=== PATIENT | female | born 1950 | race Caucasian/White ===

== ENCOUNTER 2020-10-03 13:21 | Emergency (ER) | payer MEDICARE ==
[~2020-10-03] VITALS: Ht 152.4 cm; Wt 115.3 kg
[2020-10-03 13:29] VITALS: BP 159/66
[2020-10-03] MEDS ORDERED: ibuprofen 200mg tablet PO ONE (14:40)
[2020-10-03] MEDS ORDERED: HYDR-3965 PO (15:27)
== END 2020-10-03 15:47 | disposition home or self-care (01) ==
LOC: ER 13:21
DX: S42.91XA Fracture of right shoulder girdle, part unspecified, initial encounter for closed fracture (principal); I50.9 Heart failure, unspecified; I11.0 Hypertensive heart disease with heart failure; E11.9 Type 2 diabetes mellitus without complications; Z87.440 Personal history of urinary (tract) infections; Z79.899 Other long term (current) drug therapy; W18.09XA Striking against other object with subsequent fall, initial encounter; Z91.81 History of falling; Y93.89 Activity, other specified; Y92.89 Other specified places as the place of occurrence of the external cause; Y99.8 Other external cause status
CPT/HCPCS: 73030; 99284

== ENCOUNTER 2025-02-18 17:07 | Emergency (ER) | payer MEDICARE, MEDICAID ==
[~2025-02-18] VITALS: Ht 152.4 cm; Wt 91.2 kg
[~2025-02-18 17:07] MED LIST: ATEN-236 PO; DESV50TA PO; GLIM2TAB6 PO; HYDR12.55 PO; LISI40TA20 PO; METF-436 PO
[2025-02-18 17:47] VITALS: BP 155/77; PULSE 89; O2SAT 97
--- NOTE | 2025-02-18 17:51 | Physician Documentation ---
History of Present Illness ~ Stated Complaint: HIP PAIN Time Seen by MD: 20:15 Primary Medical Doctor: Porter Hall [facility] Source: patient Mode of Arrival: POV, EMS Exam Limitations: no limitations HPI [age] year old female brought in by EMS for acute on chronic right hip pain patient takes medications for chronic pain but has been noncompliant with her medications and did not take her medications today. Patient takes gabapentin but did not take her medication today Medication Reconciliation Allergies: Coded Allergies: No Known Allergies (Unverified , 08/01/13) Scheduled Atenolol (Atenolol), 1 TAB PO BID, (Reported) Desvenlafaxine Succinate (Pristiq ER), 1 TAB PO DAILY, (Reported) Glimepiride (Glimepiride), 1 TAB PO DAILY, (Reported) Hydrochlorothiazide (Hydrochlorothiazide), 1 TAB PO DAILY, (Reported) Lisinopril* (Lisinopril*), 1 TAB PO DAILY, (Reported) Metformin Hcl (Metformin Hcl), 2 TAB PO Q12H, (Reported) Past Medical History Past Medical History: Congestive Heart Failure, Hypertension, UTI, Diabetes Past Surgical History: orthopedic surgeries, tonsillectomy Alcohol Use: None Drug Use: none Lives with: Alone Lives In: Home Review of Systems All Other Systems at this time: Reviewed and Negative Musculoskeletal: Reports: see HPI Physical Exam General Appearance General: Alert, no apparent distress. HEENT: moist mucous membranes. Neck: Full range of motion. Respiratory: No respiratory distress speaking in full sentences Chest: No accessory muscle use. Cardiovascular: Appears well perfused Neurologic: Oriented x4. Extremities: Patient needed moderate assistance to stay and using the right lower extremity on triage standing scale Psychiatric: Normal mood and affect. Skin: Normal color, warm and dry. No edema, no ecchymosis. Progress Results/Orders Results/Orders Orders - BARBARA MAJOR NP Gait Test (02/18/25 ) Completed Orders - BARBARA MAJOR PROFESSOR OF CHEMISTRY Gabapentin Capsule (Neurontin Capsule) (02/19/25 00:00) Hydrocodone/Apap 5/325mg Tab ([place] 5/32 (02/18/25 18:00) Gabapentin Capsule (Neurontin Capsule) (02/18/25 21:18) Medications Received in ER Medications (Trade) Dose Ordered Sig/Kristel Route PRN Reason Start Time Stop Time Status Last Admin Dose Admin ([place] 5/325mg tablet) 1 tab ONCE ONCE PO 02/18/25 18:00 02/18/25 18:01 DC 02/18/25 21:16 1 TAB (Neurontin capsule) 400 mg ONCE STAT PO 02/18/25 21:18 02/18/25 21:21 DC 02/18/25 21:27 400 MG Vital Signs 02/18/25 02/18/25 02/18/25 17:47 21:16 21:20 Temp 97.9 97.9 Pulse 89 Resp 18 18 B/P (MAP) 155/77 Pulse Ox 97 O2 Flow Rate 0 Medical Decision Making Additional information obtaine: N/A Findings Old brought in by EMS for right hip pain which she has acute pain she has had for over 4 years. Forgot to take her medications today. Patient takes gabapen tin. Provided gabapentin and [place] to help with pain relief prior to discharge Differential Dx:Considerations: Include: Contusion, Strain, Other Departure Time of Disposition: 20:43 Disposition: HOME / SELF CARE / HOMELESS Impression: Primary Impression: Osteoarthritis Additional Impression: Hip pain Condition: Stable Discharge Instructions: Arthritis, Nonspecific Additional Instructions: Medications as prescribed and follow up with primary care. Potentially a pill organizer can help with remembering medications. Referrals: NO PRIMARY CARE PROVIDER (PCP) Education Educated: Patient Educated regarding: diagnosis, treatment, need for follow up Signature Scribe Signature: No scribe Attestation: The note accurately reflects work and decisions made by me.Barbara Major - ALBARO 02/18/25 20:44 BARBARA MAJOR NP Feb 18, 2025 17:51
[2025-02-18 21:16] VITALS: RESP 18
[2025-02-18] MEDS: HYDROcodone/acetaminophen 5mg/325mg tablet PO ONE (21:16)
[2025-02-18 21:20] VITALS: TEMP 97.9
== END 2025-02-18 21:32 | disposition home or self-care (01) ==
LOC: ER 17:07
DX: M25.551 Pain in right hip (principal); M19.90 Unspecified osteoarthritis, unspecified site; I11.0 Hypertensive heart disease with heart failure; I50.9 Heart failure, unspecified; G89.29 Other chronic pain; E11.9 Type 2 diabetes mellitus without complications; Z87.440 Personal history of urinary (tract) infections; Z90.89 Acquired absence of other organs; Z79.899 Other long term (current) drug therapy; Z60.2 Problems related to living alone
CPT/HCPCS: 99283

== ENCOUNTER 2025-04-09 11:43 | Inpatient (IN) | payer MEDICARE, MEDICAID ==
[~2025-04-09] VITALS: Ht 152.4 cm; Wt 100.0 kg
--- NOTE | 2025-04-09 11:56 | ELECTROCARDIOGRAPH REPORT ---
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 RUBY Welsh Measurements Intervals [place] Rate: 96 P: 52 MD: 154 QRS: 47 QRSD: 92 T: 74 QT: 382 QTc: 483 Interpretive Statements Sinus rhythm Ventricular bigeminy Minimal ST elevation, inferior leads Electronically Signed On 04-10-2025 19:21:[address] RUBY Welsh Please click the below link to view image of tracing.
[2025-04-09 12:27] LABS: MEAN PLATELET VOLUME 10.0 FL (7.4-10.4); RED CELL DISTRIBUTION WIDTH 13.5 % (11.5-14.5)
--- NOTE | 2025-04-09 12:46 | RADIOLOGY REPORT ---
CHEST RADIOGRAPH Indication: CP Technique: Single frontal view of the chest was obtained COMPARISON: None FINDINGS: Lines and Tubes: None Lungs: Clear Pleura: No effusion. No pneumothorax. Cardiomediastinal contours: Unremarkable Bones: Unremarkable IMPRESSION: No acute disease.
[2025-04-09 12:55] LABS: CREATININE 1.60 MG/DL (0.40-0.90); PRO BRAIN NATRIURETIC PEPTIDE 782 PG/ML (0-125); TOTAL CARBON DIOXIDE 25.9 MMOL/L (24-32); eCRCL 22 ML/MIN; eGFR 32 ML/MIN
[2025-04-09] MEDS: insulin regular, human 10 units/0.1 ml syringe IV ONE (13:41)
--- NOTE | 2025-04-09 14:22 | Physician Documentation ---
History of Present Illness General Chief Complaint: Bradycardia Stated Complaint: HYPERGLYCEMIA Time Seen by MD: 13:30 OK to notify your PCP?: Yes Primary Medical Doctor: [facility] Source: patient Mode of Arrival: EMS History of Present Illness Initial Comments A 74 years old female with PMH of uncontrolled T2DM, HTN, Heart failure of unknown ejection fraction, acute on chronic right hip pain, UTIs who was brought by EMS and sent by her home nurse found to have asymptomatic bradycardia and high RBS at 424. Pt dose not recall much information including reason of being here, why she was prescribed with Atenolol by her PCP etc which she attributed for the uncontrolled fluctuated blood sugar levels although pt was a well orientated and not confused. Pt denied for any symptoms at the time when she got bradycardia detected by her home nurse by denying dizziness, lightheadness, chest pain, pressure, discomfort, new visual changes, N&V, and passing out episode etc. She denied for hx of liver disease with hyperbilirubinaemia, step ladder pattern high grade fevers etc. She denied for any hormonal disorders and not currently on the HRT. She was never diagnosed with the CAD and [place] before but she noticed that her blood sugar was not controlled well alone with the insulin injection without taking any OHA. She is taking Atenolol 25 mg BID prescribed by her PCP for some reason which she dose not recall but she defensed that she missed her morning dose of Atenolol this morning. In ER, she was found to have high blood sugar at 424, and recheck RBS showed with 466 with no apparent symptoms except for the intense thirsty feeling while denying frequent polyuria, dysuria, urgenc y etc. She denied for any HF exacerbation symptoms and is not current on the Diuretics what she used to be on. Pt denied using any steroid medications. Medication Reconciliation Allergies: Coded Allergies: No Known Allergies (Unverified , 04/09/25) Scheduled Atenolol (Atenolol), 1 TAB PO BID, (Reported) Desvenlafaxine Succinate (Pristiq ER), 1 TAB PO DAILY, (Reported) Glimepiride (Glimepiride), 1 TAB PO DAILY, (Reported) Hydrochlorothiazide (Hydrochlorothiazide), 1 TAB PO DAILY, (Reported) Lisinopril* (Lisinopril*), 1 TAB PO DAILY, (Reported) Metformin Hcl (Metformin Hcl), 2 TAB PO Q12H, (Reported) Past Medical History Past Medical History: Congestive Heart Failure, Hypertension, GERD, UTI, Diabetes Past Surgical History: orthopedic surgeries, tonsillectomy Alcohol Use: None Drug Use: none Lives with: Alone Lives In: Home Review of Systems All Other Systems at this time: Reviewed and Negative Physical Exam Physical Exam Vital Signs: Temperature: 98.2, Source: Oral, Heart Rate: 90, Respiratory Rate: 18, BP: 111/46, Pulse Oximetry: 97, Weight: 100.000 Oxygen Flow Rate: 0 Physical Exam General: Well alert, well oriented, not confused, not agitated, not in acute distress, well cooperated during the physical. HEENT: Conjunctive are pink, sclerae clear, no icterus, pupil is equal in both sides, reactive to light, no ear discharge, no pharyngeal erythema or an edema, mouth and lips are dry. Neck: Supple, no JVD, no lymphadenopathy and thyromegaly. Lungs:Equal air entry on both lungs, no additional sounds Heart: S1-S2 regular sinus rhythm and, regular rate, no gallops, no rubs, no murmurs Abdomen: No visible peristalsis, Bowel sounds present on auscultation, soft, nontender, no guarding, no rigidity Extremities: No obvious deformities, no pitting edema bilaterally, capillary refill intact, able to wiggle toes both sides, peripheral pulsations are intact on both sides LIABILITY CLAIMS REPRESENTATIVE: No focal neurological deficits, no motor and sensory weakness in all 4 extremities, could move all 4 extremities Musculoskeletal: No joint swelling, deformities, inflammations, and no scoliosis and back tenderness Skin: No active skin lesions and rashes Progress Results/Orders Results/Orders Orders - LUKE,TIN, RES Hgb A1c (04/09/25 14:01) TSH (04/09/25 14:01) Lipid Panel (04/09/25 14:01) Liver Panel (04/09/25 14:04) Completed Orders - LUKE,TIN, RES Insulin Regular, Human (Humulin R 10 Uni (04/09/25 13:35) Medications Received in ER Medications (Trade) Dose Ordered Sig/Kristel Route PRN Reason Start Time Stop Time Status Last Admin Dose Admin (HumuLIN R 10 units per 0.1 ML syringe) 5 units ONCE ONCE IV 04/09/25 13:35 04/09/25 13:37 DC 04/09/25 13:41 5 UNITS Vital Signs 04/09/25 04/09/25 04/09/25 04/09/25 11:51 12:19 12:19 12:27 Temp 98.2 Pulse 47 90 Resp 14 16 18 B/P (MAP) 110/52 111/46 (67) Pulse Ox 94 97 97 O2 Delivery Room Air* O2 Flow Rate 0 0 0 FiO2 21 Laboratory Tests Test 04/09/25 11:51 04/09/25 12:11 04/09/25 13:43 Glucometer 424 *H White Blood Count 9.7 Red Blood Count 4.86 Hemoglobin 12.9 Hematocrit 39.9 Mean Corpuscular Volume 82.1 Mean Corpuscular Hemoglobin 26.6 L Mean Corpuscular Hemoglobin Concent 32.4 L Red Cell Distribution Width 13.5 Platelet Count 191 Mean Platelet Volume 10.0 Neutrophils (%) (Auto) 75.8 H Lymphocytes (%) (Auto) 17.2 L Monocytes (%) (Auto) 4.8 Eosinophils (%) (Auto) 1.3 Basophils (%) (Auto) 0.9 Neutrophils # (Auto) 7.4 Lymphocytes # (Auto) 1.7 Monocytes # (Auto) 0.5 Eosinophils # (Auto) 0.1 Basophils # (Auto) 0.1 CBC Comment Sodium Level 134 L Potassium Level 4.4 Chloride Level 101 Carbon Dioxide Level 25.9 Anion Gap 7 L Blood Urea Nitrogen 23 H Creatinine 1.60 H Estimated GFR/1.73 m2 32 BUN/Creatinine Ratio 14.4 Glucose Level 466 *H Calcium Level 9.0 Troponin I High Sensitivity 40 35 Pro-B-Type Natriuretic Peptide 782 H Albumin 2.9 L Chemistry Comments Troponin I High Sens Percent Delta 12 Troponin I Hi Sens Absolute Change -5 EKG/XRAY/CT/US/VASC/MRI Chest X-Ray : Interpreted By: radiologist Views: 1 VIEW Additional Comments FINDINGS: Lines and Tubes: None Lungs: Clear Pleura: No effusion. No pneumothorax. Cardiomediastinal contours: Unremarkable Bones: Unremarkable IMPRESSION: No acute disease. Medical Decision Making Additional information obtaine: old records Findings A 74 years old female with PMH of uncontrolled T2DM, HTN, Heart failure of unknown ejection fraction, chronic right hip pain, UTIs who was brought by EMS and sent by her home nurse found to have asymptomatic bradycardia and high RBS at 424. # Asymptomatic Bradycardia -Given hx of pt has been taking Atenolol regularly with no symptoms would be the possible etiology of her asymptomatic bradycardia for which the Atenolol was stopped from her med list. At that point, there is hard to believe that her providing facts about symptoms free when she is not a quite good historian and some memory issues which she attributed for the fluctuating blood sugar levels. Additionally, the nurse reported that pt HR dropped to 30s while she was asleep and it jumped up to 60s when she was aroused. She was ordered with the transcutaneous pacer pads although the vitals were stable and without reporting for any symptoms at that moment. -Her EKG only showed sinus bradycardia with some Bigmeny with no ST T abnormal changes with normal Trops with 40-35 -Ordered TSH and excluded out possible other etiologies of bradycardia from hyperbilirubinaemia (Pending liver panel), and Enteric fever etc. -She will be beneficial to be admitted to continue monitoring her Telemetry and possible Cardiology consultation for the further management. -Pending UA and C&S -Electrolytes were WNL except for the mild hyponatremia with no symptoms # Uncontrolled T2DM # Hypertension # Heart Failure with unknown EF, not in acute exacerbation -Poorly controlled alone with insulin at home -pending HbA1C and Lipid panel, pending ASCVD risk calculation -Was given one time dose of IV Insulin 5 mg and needs to initiate the hyper/hypoglycemic protocols during hospitalization to range between 140-180s -Carbs controlled diet and pt education will be necessary. -High blood pressure should be controlled with meds other than rene blocking agents and Atenolol was held. -Continue BP monitoring were suggested and replace Atenolol with some possible ACEI/ARB in the setting of HF with unknown EF, but continuous monitoring RFT with Cr 1.6 should be demanding. -Non specific elevation of proBNP in the background hx of CHF but not in acute exacerbation. Normal CXR finding. 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 -Pending UA and protein detection in urine # Chronic right hip pain -The Tylenol high dose seems to be helpful for her hip pain control -avoid using the nephrotoxic NSAIDs and some opiate pain control, suggested to use hydromorphone etc Differential Diagnosis Symptomatic Bradycardia Hyperglycemia Departure Time of Disposition: 14:33 Disposition: 09 ADMITTED INPATIENT Admitted to Inpatient Unit: yes, to hospitalist Admission Level of Care: PCU with Tele Impression: Primary Impression: Bradycardia Additional Impression: Hyperglycemia Condition: Fair Referrals: NO PRIMARY CARE PROVIDER (PCP) Education Educated: Patient Educated regarding: diagnosis, treatment, prognosis, need for follow up Signature Scribe Signature: No Scribe Attestation: Resident attestation: Patient was seen, examined and discussed with ER attending MD, Dr. Deepthi MD Internal Medicine Resident, PGY3 [facility] BUTLER, RES Apr 09, 2025 14:22
[2025-04-09] MEDS ORDERED: potassium Cl 40MEQ/1/2NS 520ml 520 ML IV PRN (14:35)
[2025-04-09] MEDS ORDERED: magnesium sulf-water 4G/100mL 100 ML IV PRN (14:35)
[2025-04-09] MEDS ORDERED: magnesium Cl slow-release 64mg tablet PO PRN (14:35)
[2025-04-09] MEDS ORDERED: bisacodyl 10mg suppository rectal RC PRN (14:35)
[2025-04-09] MEDS ORDERED: HYDROcodone/acetaminophen 5mg/325mg tablet PO PRN (14:35)
[2025-04-09] MEDS ORDERED: potassium Cl 20 mEq SR tablet PO PRN ×2 (14:35)
[2025-04-09] MEDS ORDERED: magnesium hydroxide 30ml (MOM) UD suspension PO PRN (14:35)
[2025-04-09] MEDS ORDERED: magnesium sulf-water 2g/50mL 50 ML IV PRN (14:35)
[2025-04-09] MEDS ORDERED: glucagon, human recombinant 1mg kit SUBCUT PRN (14:40)
[2025-04-09] MEDS ORDERED: dextrose 50%-water 50ml dispensing syringe IV PRN ×2 (14:40)
[2025-04-09] MEDS ORDERED: DEXTROSE 15 GM of carb/4 tabs (each vial/BOTTLE has 4 tablets) PO PRN ×2 (14:40)
[2025-04-09] MEDS: normal saline 1000ml 1,000 ML IV SCH (15:04)
[2025-04-09 15:18] LABS: CHOL/HDL RATIO 3.1 (0.00-4.99); LDL CHOLESTEROL 95 MG/DL (50-100)
[2025-04-09] MEDS ORDERED: TIZA2CAP7 PO (15:58)
[2025-04-09] MEDS ORDERED: DESV100T6 PO (16:00)
[2025-04-09] MEDS ORDERED: PRAV40TA17 PO (16:00)
[2025-04-09] MEDS: INSULIN LISPRO 100 UNIT/ML INSULN.PEN MULTI-DOSE SQ SCH ×2 (17:14→18:00)
[2025-04-09] MEDS: K and/or MAG REPLACEMENT MC SCH (18:37)
[2025-04-09] MEDS: heparin, porcine 5000 units/ml vial SQ SCH (20:15)
[2025-04-09] MEDS: insulin glargine (Lantus) pen - multi-dose SQ SCH (20:30)
--- NOTE | 2025-04-09 21:42 | HISTORY AND PHYSICAL ---
History & Physical Providers to CC ~ History of Present Illness Reason for Admit\Complaint: Sinus bradycardia and elevated blood sugar History of Present Illness A 74 years old female with PMH of uncontrolled T2DM, HTN, Heart failure of unknown ejection fraction, acute on chronic right hip pain, UTIs who was brought by EMS and sent by her home nurse found to have asymptomatic bradycardia and high blood sugar levels. Patient is very poor historian unable to give me much reliable history. As per patient they noticed that her heart rate is low at home in blood sugars were high so they brought her over , unable to recall much about her medications. No other pertinent history. No other alleviating or exacerbating factors. She denies any chest pain shortness of breaths swelling over the ankles or irregular heart rate associated with bradycardia Allergies: Coded Allergies: No Known Allergies (Unverified , 04/09/25) Home Medications Home Medications Active Reported Desvenlafaxine ER (Desvenlafaxine) 100 Mg Tab.er.24h 1 Tab PO DAILY Pravastatin Sodium 40 Mg Tablet 1 Tab PO DAILY Tizanidine Hcl 2 Mg Capsule 1 Cap PO Q8H Metformin Hcl 500 Mg Tablet 2 Tab PO Q12H 30 Days Lisinopril* (Lisinopril) 40 Mg Tablet 1 Tab PO DAILY Past Medical History Past Medical History Congestive Heart Failure, Hypertension, GERD, UTI, Diabetes Past Surgical History Surgical History Comment Reverse arthroplasty of the right shoulder orthopedic surgeries, tonsillectomy Past Social History Social History Comment Patient denied use of any alcohol tobacco or any recreational drugs. She is able to ambulate off and on use walker or cane ROS ROS Review of system as mentioned above in HPI limited as patient is poor historian Exam Vitals: Vital Signs Date Time Temp Pulse Resp B/P (MAP) Pulse Ox O2 Delivery O2 Flow Rate FiO2 04/09/25 20:00 Room Air 04/09/25 17:51 86 04/09/25 16:03 15 126/52 (76) 98 0 04/09/25 12:19 21 04/09/25 11:51 98.2 General: General-patient not in any acute distress, alert awake age-appropriate, looks comfortable HEENT-atraumatic normocephalic, neck supple without elevated JVD, no thyromegaly or carotid bruit. No lymphadenopathy bilaterally. Eyes-no icterus or pallor seen in eyes Chest-clear to auscultation bilaterally, breathing nonlabored no tachypnea, no wheezing, no crepitation, no crackles. Heart-S1-S2 normal, regular heart rate no murmur Abdomen bowel sounds positive on auscultation, soft nondistended nontender no guarding, no rigidity Skin no active skin rash Neurology-grossly intact, nonfocal alert awake , signs of mild dementia present Extremity- no pedal edema able to move all 4 extremities Psychiatry - patient is not confused or agitated cooperated during physical examination Diagnostic Data Last Recorded Lab Results: 04/09/25 1211 04/09/25 1211 Additional Plan A 74 years old female with PMH of uncontrolled T2DM, HTN, Heart failure of unknown ejection fraction, chronic right hip pain, UTIs who was brought by EMS and sent by her home nurse found to have asymptomatic bradycardia and high blood sugar 424. # Asymptomatic Bradycardia -Atenolol was stopped -Her EKG only showed sinus bradycardia with some Bigmeny with no ST T abnormal changes with normal Trops with 40-35 -normal TSH -will continue monitoring her under Telemetry and will plan for cardiology consultation in a.m. # Uncontrolled T2DM -hemoglobin A1c greater than 12.0 # Hypertension # Heart Failure with unknown EF, not in acute exacerbation -lipid panel unremarkable except for mildly elevated triglyceride 155 -Poorly controlled DM with insulin at home -started on hyper/hypoglycemic protocols during hospitalization to range between 140-180s -started on Carbs controlled diet -Non specific elevation of proBNP in the background hx of CHF but not in acute exacerbation. Normal CXR finding. 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 All labs, diagnostic workup, old records and ER records reviewed Needs physical therapy evaluation before discharge . Patient is full code at this point of time. Patient's son is her POA. We will do home medication reconciliation once updated in electronic by nursing staff or pharmacist. Further management depending on response to treatment and I will continue to follow patient in a.m. Date of Service: Apr 09, 2025 Billing Provider: LUKE CUMMINGS MD Common Visit Codes: [id number] INP/OBS CARE (HIGH) LUKE CUMMINGS MD Apr 09, 2025 21:42
[2025-04-09 22:00] VITALS: BP 130/60; PULSE 56; RESP 20; TEMP 97; O2SAT 95
[2025-04-10 02:00] VITALS: BP 119/45; PULSE 87; RESP 15; TEMP 97.1; O2SAT 96
[2025-04-10 06:00] VITALS: BP 151/60; PULSE 62; RESP 16; TEMP 97.7; O2SAT 96
[2025-04-10 06:45] LABS: MEAN PLATELET VOLUME 10.0 FL (7.4-10.4); RED CELL DISTRIBUTION WIDTH 13.9 % (11.5-14.5)
[2025-04-10 07:26] LABS: CREATININE 1.27 MG/DL (0.40-0.90); TOTAL CARBON DIOXIDE 23.2 MMOL/L (24-32); eCRCL 28 ML/MIN; eGFR 41 ML/MIN
[2025-04-10] MEDS ORDERED: morphine 4 MG/ML inj SYRINge IV PRN (09:55)
[2025-04-10 11:00] VITALS: BP 110/53; PULSE 82; RESP 20; TEMP 99.1; O2SAT 93
[2025-04-10] MEDS: HYDROcodone/acetaminophen 5mg/325mg tablet PO PRN (14:18)
[2025-04-10 15:00] VITALS: BP 113/63; PULSE 80; RESP 20; TEMP 98.2; O2SAT 95
[2025-04-10 18:00] VITALS: BP 131/91; PULSE 78; RESP 20; TEMP 98; O2SAT 97
--- NOTE | 2025-04-10 19:56 | CARDIOLOGY REPORT ---
APPROVED REPORT EXAM: Comprehensive 2D, Doppler, and color-flow Echocardiogram. Patient Location: ER RM 8 Blood Pressure: 127/49 mmHg Heart Rate: 85 bpm Indications Arrhythmia ProBNP: 782 Hypertension Diabetes Congestive Heart Failure NO INTERACTIVE MEDIA DESIGNER NO Previous ECHO 2D Dimensions LA Diam 3.5 cm IVSd 1.1 (0.7-1.1cm) LVDd 4.5 cm PWd 1.0 (0.7-1.1cm) IVSs 1.6 (0.8-1.2cm) LVDs 3.4 (2.5-4.0cm) PWs 1.1 (0.8-1.2cm) LVOT Diameter 1.95 (1.8-2.4cm) LVEF(%) 48.8 (>50%) Ao Asc Diam. 2.72 cm IVC 14.26 mm FS (%) 24.5 % SV 44.4 ml CO 3.7 L/min M-Mode Dimensions Left Atrium(MM) 4.03 (2.5-4.0cm) Aortic Root 2.61 (2.2-3.7cm) Aortic Cusp Exc 1.32 (1.5-2.0cm) Aortic Valve AoV Peak Dewayne. 239.0 cm/s AoV VTI 40.5 cm AO Peak GR. 22.8 mmHg AO Mean GR. 13 mmHg LVOT VTI 30.86 cm LVOT Peak Dewayne. 146.6 cm/s ALY(VTI)/BSA 2.28 cm2/m2 ALY (VTI) 2.28 cm2 AV DI 0.76 % Mitral Valve MV E Velocity 60.8 cm/s MV Peak Gr. 6 mmHg MV DECEL TIME 276 ms MV A Velocity 129.6 cm/s MV Mean Gr. 1 mmHg MV PHT 104 ms E/A Ratio 0.5 MVA (PHT) 2.12 cm2 MV VMax 126.1 cm/s MV VMean 49.6 cm/s MVA VTI 3.39 cm2 MV VTI 27.2 cm TDI Lateral E' P. V 6.54 cm/s E/Lateral E' 9.3 Tricuspid Valve TR P. Velocity 145 cm/s RAP ESTIMATE 10 mmHg TR Peak Gr. 8 mmHg RVSP 18 mmHg LEFT VENTRICLE Normal LV size and wall thickness. Overall systolic function is normal. Overall LVEF is about 60 % RIGHT VENTRICLE Right ventricle is mildly dilated with adequate function. ATRIA The left atrium size is normal. AORTIC VALVE Trileaflet AV appears mildly sclerotic without stenosis. No insufficiency by color and spectral flow Doppler. MITRAL VALVE Moderate posterior mitral annular calcification without stenosis. Trace regurgitation. TRICUSPID VALVE The tricuspid valve is normal in structure with trace regurgitation. PULMONIC VALVE Pulmonic valve is grossly normal in structure without insufficiency. GREAT VESSELS The aortic root is normal in size. The ascending aorta is normal in size. The IVC is normal in size and collapses >50% with inspiration. PERICARDIUM Trivial anterior loculated effusion present without compromise. Prominent anterior epicardial fat pad is present. Other Information Study Quality: Adequate Conclusion Overall LVEF is about 60 % Right ventricle is mildly dilated with adequate function. Trileaflet AV appears mildly sclerotic without stenosis. No insufficiency by color and spectral flow Doppler. Moderate posterior mitral annular calcification without stenosis. Trace regurgitation. Pulmonic valve is grossly normal in structure without insufficiency. Trivial anterior loculated effusion present without compromise. Prominent anterior epicardial fat pad is present.
--- NOTE | 2025-04-10 20:21 | PROGRESS NOTE ---
Daily Progress Note Providers to CC ~ Antibiotic Timeout Antibiotic Ordered?: No Subjective Patient was seen in her room she looked comfortable in her heart rate is back to normal. No further decrease in heart rate noticed since admission. Tried contacted Dr. Muhammad today and we will reach out tomorrow if heart rate is low Objective Vital Signs Date Time Temp Pulse Resp B/P (MAP) Pulse Ox O2 Delivery O2 Flow Rate FiO2 04/10/25 15:18 20 04/10/25 15:00 98.2 80 113/63 (80) 95 Room Air 04/09/25 16:03 0 04/09/25 12:19 21 Result Diagram: 04/10/25 0548 04/10/25 0548 General-patient not in any acute distress, alert awake age-appropriate, looks comfortable HEENT-atraumatic normocephalic, neck supple without elevated JVD, no thyromegaly or carotid bruit. No lymphadenopathy bilaterally. Eyes-no icterus or pallor seen in eyes Chest-clear to auscultation bilaterally, breathing nonlabored no tachypnea, no wheezing, no crepitation, no crackles. Heart-S1-S2 normal, regular heart rate no murmur Abdomen bowel sounds positive on auscultation, soft nondistended nontender no guarding, no rigidity Skin no active skin rash Neurology-grossly intact, nonfocal alert awake , signs of mild dementia present Extremity- no pedal edema able to move all 4 extremities Psychiatry - patient is not confused or agitated cooperated during physical examination Problem\Assessment\Plan A 74 years old female with PMH of uncontrolled T2DM, HTN, Heart failure of unknown ejection fraction, chronic right hip pain, UTIs who was brought by EMS and sent by her home nurse found to have asymptomatic bradycardia and high blood sugar 424. # Asymptomatic Bradycardia -Atenolol was stopped -Her EKG only showed sinus bradycardia with some Bigmeny with no ST T abnormal changes with normal Trops with 40-35 -normal TSH -will continue monitoring her under Telemetry and will plan for cardiology consultation in a.m. if needed # Uncontrolled T2DM -hemoglobin A1c greater than 12.0 # Hypertension # Heart Failure with unknown EF, not in acute exacerbation -lipid panel unremarkable except for mildly elevated triglyceride 155 -Poorly controlled DM with insulin at home -started on hyper/hypoglycemic protocols during hospitalization to range between 140-180s -started on Carbs controlled diet -Non specific elevation of proBNP in the background hx of CHF but not in acute exacerbation. Normal CXR finding. 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 Patient's son is her POA. We will continue to monitor patient's labs and vitals closely . home medication reconciliation once updated in electronic records. Further management depending on response to treatment and I will continue to follow patient in a.m. Date of Service: Apr 10, 2025 Billing Provider: LUKE CUMMINGS MD Common Visit Codes: [id number] INP/OBS CARE(HIGH) LUKE CUMMINGS MD Apr 10, 2025 20:21
[2025-04-10 22:00] VITALS: BP 146/59; PULSE 50; RESP 16; TEMP 97.5; O2SAT 98
[2025-04-11] VITALS (7 sets, daily range): BP systolic 116–139; BP diastolic 46–71; PULSE 58–85; RESP 13–18; TEMP 97.8–98.8; O2SAT 92–98
[2025-04-11 06:41] LABS: MEAN PLATELET VOLUME 10.4 FL (7.4-10.4); RED CELL DISTRIBUTION WIDTH 13.8 % (11.5-14.5)
[2025-04-11 07:54] LABS: CREATININE 1.21 MG/DL (0.40-0.90); TOTAL CARBON DIOXIDE 23.2 MMOL/L (24-32); eCRCL 29 ML/MIN; eGFR 43 ML/MIN
--- NOTE | 2025-04-11 19:36 | PROGRESS NOTE ---
Daily Progress Note Providers to CC ~ Antibiotic Timeout Antibiotic Ordered?: No Subjective Before I went to patient's room nursing staff Anne ramon mentioned to me that Amanda Jordan ( ? Patient's sider mechanic) mentioned to this nurse that patient had previous suicidal attempts and she wants to walk out. I asked patient about any suicidal thoughts or ideation patient refused and she was surprised, she was laughing and cracking joke about this. Patient was seen in her room in presence of nursing staff Anne ramon today . She looked comfortable not in any acute distress able to ambulate with mild assistance. Patient did mentioned she has walker and cane in her house. Later today I spoke to patient's son Heri on [phone] at 5:22 p.m. and updated him regarding patient's current medical condition and it was discussed with the him that likely patient can be discharged home if she is clinically stable. He mentioned that patient has memory loss in patient's doctor contacted him because she was not following with her PCP in not taking the medication as recommended. He was also concerned about patient's driving. He agreed on IHSS support at the time of discharge. Patient is waiting for PT evaluation. Objective Vital Signs Date Time Temp Pulse Resp B/P (MAP) Pulse Ox O2 Delivery O2 Flow Rate FiO2 04/11/25 15:00 98.3 76 18 117/57 (77) 95 Room Air 04/11/25 08:00 0.0 21 Result Diagram: 04/11/25 0606 04/11/25 0606 General-patient not in any acute distress, alert awake age-appropriate, looks comfortable HEENT-atraumatic normocephalic, neck supple without elevated JVD, no thyromegaly or carotid bruit. No lymphadenopathy bilaterally. Eyes-no icterus or pallor seen in eyes Chest-clear to auscultation bilaterally, breathing nonlabored no tachypnea, no wheezing, no crepitation, no crackles. Heart-S1-S2 normal, regular heart rate no murmur Abdomen bowel sounds positive on auscultation, soft nondistended nontender no guarding, no rigidity Skin no active skin rash Neurology-grossly intact, nonfocal alert awake , signs of mild dementia present Extremity- no pedal edema able to move all 4 extremities Psychiatry - patient is not confused or agitated cooperated during physical examination Problem\Assessment\Plan A 74 years old female with PMH of uncontrolled T2DM, HTN, Heart failure of unknown ejection fraction, chronic right hip pain, UTIs who was brought by EMS and sent by her home nurse found to have asymptomatic bradycardia and high blood sugar 424. # Asymptomatic Bradycardia -Atenolol was stopped -Her EKG only showed sinus bradycardia with some Bigmeny with no ST T abnormal changes with normal Trops with 40-35 -normal TSH -will continue monitoring her under Telemetry and will plan for cardiology consultation in a.m. if needed # Uncontrolled T2DM -hemoglobin A1c greater than 12.0 # Hypertension # Heart Failure with unknown EF, not in acute exacerbation -lipid panel unremarkable except for mildly elevated triglyceride 155 -Poorly controlled DM with insulin at home -started on hyper/hypoglycemic protocols during hospitalization to range between 140-180s -started on Carbs controlled diet -Non specific elevation of proBNP in the background hx of CHF but not in acute exacerbation. Normal CXR finding. 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 Patient's son is her POA. We will continue to monitor patient's labs and vitals closely . home medication reconciliation once updated in electronic records. Further management depending on response to treatment and I will continue to follow patient in a.m. Date of Service: Apr 11, 2025 Billing Provider: LUKE CUMMINGS MD Common Visit Codes: [id number] INP/OBS CARE(HIGH) LUKE CUMMINGS MD Apr 11, 2025 19:36
[2025-04-12] MEDS: ondansetron/PF 4mg/2ml inj IV PRN (00:38)
[2025-04-12 02:00] VITALS: BP 107/53; PULSE 50; RESP 20; TEMP 97.5; O2SAT 98
[2025-04-12 06:00] VITALS: BP 130/67; PULSE 78; RESP 17; TEMP 98.3; O2SAT 93
[2025-04-12 06:28] LABS: MEAN PLATELET VOLUME 10.0 FL (7.4-10.4); RED CELL DISTRIBUTION WIDTH 13.8 % (11.5-14.5)
[2025-04-12 06:54] LABS: CREATININE 1.45 MG/DL (0.40-0.90); TOTAL CARBON DIOXIDE 25.1 MMOL/L (24-32); eCRCL 24 ML/MIN; eGFR 35 ML/MIN
[2025-04-12 08:00] VITALS: RESP 17; O2SAT 92
[2025-04-12 11:00] VITALS: BP 128/75; PULSE 77; RESP 19; TEMP 98.5; O2SAT 97
[2025-04-12] MEDS ORDERED: LISI20TA28 PO (11:43)
[2025-04-12 14:16] VITALS: RESP 19
--- NOTE | 2025-04-12 19:41 | DISCHARGE SUMMARY ---
Discharge Summary Providers to CC ~ Discharge Summary Admission Diagnosis: Bradycardia, uncontrolled diabetes, right hip pain CKD Hospital Course DATE OF ADMISSION: 04/09/25 DATE OF DISCHARGE:04/12/25 CBC testing done on April 12, 2025 WBC 10.5 hemoglobin 12.2 hematocrit 36.8 platelet count 184. Serum chemistry done on April 12, 2025 sodium 136 potassium 4.9 creatinine 1.45 GFR 35. Hemoglobin A1c greater than 12.0. Normal liver enzymes. Lipid panel showing triglyceride 155 rest of the lipid panel unremarkable TSH 1.09 ECHOCARDIOGRAMConclusion Overall LVEF is about 60 % Right ventricle is mildly dilated with adequate function. Trileaflet AV appears mildly sclerotic without stenosis. No insufficiency by color and spectral flow Doppler. Moderate posterior mitral annular calcification without stenosis. Trace regurgitation. Pulmonic valve is grossly normal in structure without insufficiency. Trivial anterior loculated effusion present without compromise. Prominent anterior epicardial fat pad is present. CHEST,SINGLE VIEWIMPRESSION: No acute disease. 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 # Chronic right hip pain Operations\Procedures: None Consultants: None Complications: None Condition on DC: Stable New Medications: Lisinopril (Lisinopril) 20 Mg Tablet 1 TAB PO DAILY, #30 TAB Continued Medications: Desvenlafaxine (Desvenlafaxine ER) 100 Mg Tab.er.24h 1 TAB PO DAILY, TAB 0 Refills Metformin Hcl (Metformin Hcl) 500 Mg Tablet 2 TAB PO Q12H for 30 Days, #60 TAB Pravastatin Sodium (Pravastatin Sodium) 40 Mg Tablet 1 TAB PO DAILY, TAB 0 Refills Discontinued Medications: Lisinopril* (Lisinopril*) 40 Mg Tablet 1 TAB PO DAILY Tizanidine Hcl (Tizanidine Hcl) 2 Mg Capsule 1 CAP PO Q8H, CAP 0 Refills Discharge Summary: A 74 years old female with PMH of uncontrolled T2DM, HTN, Heart failure of unknown ejection fraction, chronic right hip pain, UTIs who was brought by EMS and sent by her home nurse found to have asymptomatic bradycardia and high blood sugar 424. # Asymptomatic Bradycardia -Atenolol was stopped -Her EKG only showed sinus bradycardia with some Bigmeny with no ST T abnormal changes with normal Trops with 40-35 -normal TSH -will continue monitoring her under Telemetry and will plan for cardiology consultation in a.m. if needed # Uncontrolled T2DM -hemoglobin A1c greater than 12.0 # Hypertension # Heart Failure with unknown EF, not in acute exacerbation -lipid panel unremarkable except for mildly elevated triglyceride 155 -Poorly controlled DM with insulin at home -started on hyper/hypoglycemic protocols during hospitalization to range between 140-180s -started on Carbs controlled diet -Non specific elevation of proBNP in the background hx of CHF but not in acute exacerbation. Normal CXR finding. 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 Patient's son is her POA. I spo ke to patient's son Heri on [phone] He mentioned that patient has memory loss and patient's doctor contacted him because she was not following with her PCP and not taking the medication as recommended. He was also concerned about patient's driving. He agreed on IHSS or home health services support at the time of discharge. Patient is feeling better she has been afebrile and getting discharged home with the home health services in stable condition. Patient is seen and examined on the day of discharge. All labs, diagnostic workup and discharge plan discussed with patient before her discharge. All questions and queries answered to the best of my professional medical knowledge. I heard patient's concerns and address appropriately. Patient was cleared by Physical therapy team for home discharge manager dental Claribel involved in patient's discharge plan. Discharge instructions provided to the patient.Please follow-up with PCP , police specialist 1-2 weeks. Adjustment of blood pressure and heart rate medication done during hospital stay. Maintain blood pressure and heart rate log book for 2-3 weeks and follow-up with the primary care physician/ police specialist . Diabetes is poorly controlled further management of diabetes in outpatient setting. General-patient not in any acute distress, alert awake age-appropriate, looks comfortable HEENT-atraumatic normocephalic, neck supple without elevated JVD, no thyromegaly or carotid bruit. No lymphadenopathy bilaterally. Eyes-no icterus or pallor seen in eyes Chest-clear to auscultation bilaterally, breathing nonlabored no tachypnea, no wheezing, no crepitation, no crackles. Heart-S1-S2 normal, regular heart rate no murmur Abdomen bowel sounds positive on auscultation, soft nondistended nontender no guarding, no rigidity Skin no active skin rash Neurology-grossly intact, nonfocal alert awake , signs of mild dementia present Extremity- no pedal edema able to move all 4 extremities, patient is able to ambulate with the help of walker Psychiatry - patient is not confused or agitated cooperated during physical examination *Problems/Diagnosis: (1) Hyperglycemia Status: Acute (2) Bradycardia Status: Acute Total Time Spent on D/C: > 30 Minutes Date of Service: Apr 12, 2025 Billing Provider: LUKE CUMMINGS MD Common Visit Codes: [id number]-[id number]/OBS DISCH DAY >30min LUKE CUMMINGS MD Apr 12, 2025 19:35
== END 2025-04-12 14:45 | disposition home health service (06) | DRG 637 ==
LOC: ER 11:44 → ED HOLD 14:39 → PCU 3S 17:41
PROVIDERS: ADMIT Internal Medicine; ATTEND Internal Medicine
DX: E11.65 Type 2 diabetes mellitus with hyperglycemia (principal); N17.0 Acute kidney failure with tubular necrosis; I50.9 Heart failure, unspecified; I13.0 Hypertensive heart and chronic kidney disease with heart failure and stage 1 through stage 4 chronic kidney disease, or unspecified chronic kidney disease; N18.30 Chronic kidney disease, stage 3 unspecified; E11.22 Type 2 diabetes mellitus with diabetic chronic kidney disease; R00.1 Bradycardia, unspecified; G89.29 Other chronic pain; K21.9 Gastro-esophageal reflux disease without esophagitis; M25.551 Pain in right hip; N05.9 Unspecified nephritic syndrome with unspecified morphologic changes; E86.9 Volume depletion, unspecified; T44.7X5A Adverse effect of beta-adrenoreceptor antagonists, initial encounter; Y92.89 Other specified places as the place of occurrence of the external cause; Z79.4 Long term (current) use of insulin; Z79.84 Long term (current) use of oral hypoglycemic drugs; Z79.899 Other long term (current) drug therapy; Z91.51 Personal history of suicidal behavior
CPT/HCPCS: 36415; 71045; 80048; 80053; 80061; 80076; 82948; 83036; 83880; 84443; 84484; 85025; 93005; 93306; 97116; 97162; 99285; G0378; J1644; J1815; J2405; J7030